=== PATIENT | male | born 1975 | race Caucasian/White ===

== ENCOUNTER 2016-10-03 14:54 | Emergency (ER) | payer MEDICAID ==
[~2016-10-03] VITALS: Ht 182.9 cm; Wt 113.0 kg
[~2016-10-03 14:54] MED LIST: CHLO50TA PO; ESCI20TA10 PO; MORP-52 PO; OXYC10TA6 PO; OXYC5CAP4 PO; POTA20TA89 PO
[2016-10-03] MEDS ORDERED: SODIUM CHLORIDE FLUSH 10ML SYR IVF ONE ×2 (15:30→17:00)
[2016-10-03] MEDS ORDERED: ASPIRIN 81 MG TABLET CHEW PO ONE (15:30)
[2016-10-03 15:52] LABS: BLOOD UREA NITROGEN 16 mg/dL (7-18)
[2016-10-03 15:57] LABS: IS PT STATUS REG ER OR PRE ER? YES
[2016-10-03] MEDS ORDERED: CLON0.1T PO (16:29)
[2016-10-03] MEDS ORDERED: SODIUM CHLORIDE 0.9% 1,000ML IVBOLUS ONE (17:00)
[2016-10-03] MEDS ORDERED: MAGNESIUM SULFATE 1 GM in SODIUM CHLORIDE 0.9% 50 ML IV ONE (17:00)
[2016-10-03] MEDS ORDERED: POTASSIUM CHLORIDE 10% 40 MEQ/30 ML UDC PO ONE (17:00)
[2016-10-03] MEDS ORDERED: ASPIRIN 81 MG TABLET CHEW ONE (17:05)
[2016-10-03 18:17] VITALS: BP 137/89
== END 2016-10-03 18:49 | disposition home or self-care (01) ==
LOC: ED 18:29
DX: I10 Essential (primary) hypertension (principal); E87.6 Hypokalemia
CPT/HCPCS: 36415; 71010; 80048; 81003; 82040; 84484; 85025; 93005; 96365; 99285; J3475; J7030